=== PATIENT | female | born 1975 | race Caucasian/White ===

== ENCOUNTER 2018-05-27 11:46 | Emergency (ER) | payer MEDICARE, OTHER ==
[~2018-05-27] VITALS: Ht 160 cm; Wt 74.4 kg
[~2018-05-27 11:46] MED LIST: AZULFIDINE500 MG PO; B12INJ IM; CLONAZEPAM 1 MG1 M1 PO; FOLIC ACID1 MG PO; GLUCAGEN1 MG IM; HOME MEDICATION SUBQ; HYDROCODONE-AP1 EAC6 PO; KEFLEX500 MG PO; LEVEMIR; LIDODERM 5%1 PATC1 TRANSDERM; LINZESS145 MCG PO; METHOTREXA25 MG/1 M2 IM; MOBIC15 MG PO; NORCO 5-325 TA1 EACH PO; NOVOLOG100 UNIT/1 SUBQ; PHENERGAN12.5 M2 PO; PROMETHAZINE12.5 M1 PO; PROZAC20 MG PO; REMICADE 1100 MG/VIA IV; TOUJEO SOL300 UNIT/1 SUBQ; TRAMADOL 50 MG50 MG PO; TRESIBA FL100 UNIT/1 SQ; VITAMIN D250000 UNIT PO; WELLBUTRIN 75 M75 M1 PO; WELLBUTRIN SR100 MG PO; ZOFRAN4 MG PO
[2018-05-27] MEDS ORDERED: AMBIEN 5 MG TABL5 M1 PO (12:03)
[2018-05-27] MEDS ORDERED: TOPAMAX 25 MG T25 M1 PO (12:04)
[2018-05-27] MEDS ORDERED: NEURONTIN 300300 M1 (12:04)
[2018-05-27] MEDS ORDERED: TRAMADOL 50 MG50 MG PO (12:05)
[2018-05-27] MEDS ORDERED: IMITREX (12:07)
[2018-05-27] MEDS ORDERED: ORENCIA 25250 MG/VIA IV (12:08)
[2018-05-27 12:28] LABS: URINE BILIRUBIN NEGATIVE (Negative); URINE BLOOD NEGATIVE (Negative); URINE CLARITY CLEAR; URINE COLOR YELLOW; URINE GLUCOSE-RANDOM 3+ (Negative); URINE KETONES NEGATIVE (Negative); URINE LEUKOCYTES-REFLEX NEGATIVE (Negative); URINE NITRITE-REFLEX NEGATIVE (Negative); URINE PROTEIN NEGATIVE (Negative); URINE SPECIFIC GRAVITY 1.015 (1.005-1.030); URINE UROBILINOGEN 0.2 E.U./dl (0.2-1.0)
[2018-05-27 12:54] LABS: ABSOLUTE BASOPHILS 0.1 thou/uL (0.0-0.2); ABSOLUTE EOSINOPHILS 0.1 thou/uL (0.0-0.7); ABSOLUTE LYMPHOCYTES 2.6 thou/uL (0.8-5.3); ABSOLUTE MONOCYTES 0.5 thou/uL (0.0-1.2); ABSOLUTE NEUTROPHILS 6.3 thou/uL (1.6-8.1); BASOPHILS 1.1 %; EOSINOPHILS 0.9 %; HEMATOCRIT 40.3 % (37.0-47.0); HEMOGLOBIN 13.6 gm/dL (12.0-15.0); LYMPHOCYTES 26.8 %; MCH 31.5 pg (26.0-34.0); MCHC 33.8 g/dL (28.0-37.0); MCV 93.3 fL (80.0-100.0); MONOCYTES 4.9 %; MPV 8.3 fl. (7.2-11.1); NUCLEATED RBCS 0 /100WBC; PLATELET COUNT* 246 thou/uL (150-400); POLYS 66.3 %; RBC 4.32 mil/uL (4.20-5.00); RDW-CV 13.4 % (10.5-14.5); WBC 9.5 thou/uL (4.0-11.0)
[2018-05-27 13:03] LABS: ANION GAP 10 mmol/L (7-16); BUN 16 mg/dL (7-18); CALCIUM 8.7 mg/dL (8.5-10.1); CHLORIDE 106 mmol/L (98-107); CO2 24 mmol/L (21-32); CREATININE 0.9 mg/dL (0.6-1.3); GLUCOSE 108 mg/dL (70-99); POTASSIUM 3.6 mmol/L (3.5-5.1); SODIUM 140 mmol/L (136-145)
[2018-05-27 13:09] LABS: ALBUMIN 3.3 g/dL (3.4-5.0); ALKALINE PHOSPHATASE 103 U/L (46-116); LIPASE 76 U/L (73-393); SGOT 10 U/L (15-37); SGPT 21 U/L (30-65); TOTAL BILIRUBIN 0.1 mg/dL (<0.1-1.0); TOTAL PROTEIN 6.9 g/dL (6.4-8.2); TROPONIN-I LEVEL <0.06 ng/mL (<0.06)
[2018-05-27 14:24] LABS: INFLUENZA A ANTIGEN None Detected (None Detect); INFLUENZA B ANTIGEN None Detected (None Detect)
--- NOTE | 2018-05-27 15:02 | EKG ---
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: Sebastián FLORES : 1975 Requested By: Eileen Burns Order Number: [id number] MD: Maximus Calhoun Measurements Intervals [place]er Rate: 98 P: 46 DC: 178 QRS: 37 QRSD: 78 T: -16 QT: 361 QTc: 461 Interpretive Statements Sinus rhythm Abnormal R-wave progression, early transition Nonspecific T abnormalities, anterior leads Compared to ECG 12/14/2007 11:27:06 T-wave abnormality now present Electronically Signed On 05-27-2018 15:02:42 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
[2018-05-27] MEDS ORDERED: ZOFRAN ODT4 MG PO (15:05)
[2018-05-27 15:55] VITALS: BP 111/72
== END 2018-05-27 15:56 | disposition home or self-care (01) ==
LOC: M.ERS 11:46
PROVIDERS: Nurse Practitioner Family
DX: R53.83 Other fatigue (principal); J20.9 Acute bronchitis, unspecified; R10.9 Unspecified abdominal pain; Z90.710 Acquired absence of both cervix and uterus; M06.9 Rheumatoid arthritis, unspecified; K31.84 Gastroparesis; F41.9 Anxiety disorder, unspecified; F32.9 Major depressive disorder, single episode, unspecified; E10.40 Type 1 diabetes mellitus with diabetic neuropathy, unspecified; E10.65 Type 1 diabetes mellitus with hyperglycemia; Z88.6 Allergy status to analgesic agent; Z88.8 Allergy status to other drugs, medicaments and biological substances

== ENCOUNTER → 2019-06-15 | Outpatient (CLI) | payer MEDICARE, OTHER ==
[~2019-06-15] MED LIST changes: +AMBIEN 5 MG TABL5 M1 PO; +IMITREX; +NEURONTIN 300300 M1; +ORENCIA 25250 MG/VIA IV; +TOPAMAX 25 MG T25 M1 PO; +ZOFRAN ODT4 MG PO
== END ==
LOC: M.RAD 14:10
DX: R05 Cough (principal); R06.02 Shortness of breath; J02.9 Acute pharyngitis, unspecified; E10.8 Type 1 diabetes mellitus with unspecified complications; M06.9 Rheumatoid arthritis, unspecified; F41.1 Generalized anxiety disorder; K31.84 Gastroparesis

== ENCOUNTER → 2019-06-23 | Outpatient (CLI) | payer MEDICARE, OTHER ==
[2019-06-23 14:51] LABS: ABSOLUTE BASOPHILS 0.1 thou/uL (0.0-0.2); ABSOLUTE LYMPHOCYTES 2.9 thou/uL (0.8-5.3); ABSOLUTE MONOCYTES 0.5 thou/uL (0.0-1.2); ABSOLUTE NEUTROPHILS 4.7 thou/uL (1.6-8.1); BASOPHILS 0.6 %; EOSINOPHILS 0.6 %; HEMATOCRIT 41.9 % (37.0-47.0); HEMOGLOBIN 14.1 gm/dL (12.0-15.0); LYMPHOCYTES 35.6 %; MCH 29.6 pg (26.0-34.0); MCHC 33.7 g/dL (28.0-37.0); MCV 87.8 fL (80.0-100.0); MONOCYTES 5.8 %; MPV 7.9 fl. (7.2-11.1); NUCLEATED RBCS 0 /100WBC; PLATELET COUNT* 307 thou/uL (150-400); POLYS 57.4 %; RBC 4.77 mil/uL (4.20-5.00); RDW-CV 14.6 % (10.5-14.5); WBC 8.2 thou/uL (4.0-11.0)
== END ==
LOC: M.LAB 14:19
PROVIDERS: Internal Medicine
DX: M16.0 Bilateral primary osteoarthritis of hip (principal)